=== PATIENT | male | born 1980 | race Caucasian/White ===

== ENCOUNTER 2019-01-30 20:21 | Emergency (ER) | payer SELFPAY ==
[~2019-01-30] VITALS: Ht 185.4 cm; Wt 99.8 kg
[2019-01-30 20:33] VITALS: BP 180/107
--- NOTE | 2019-01-30 20:37 | NUR ---
TO LOBBY A/W BED, AMBULATORY, ERMKulwant NOTED
--- NOTE | 2019-01-30 22:10 | NUR ---
PT AMBULATED TO ER BED 03
--- NOTE | 2019-01-30 22:15 | NUR ---
39/M PRESENTS TO ED WITH FAMILY/FRIEND, C/O PRESSURE-LIKE PAIN AROUND MID UMBILICAL REGION, RADIATING DIFFUSELY AROUND ABD, REPORTS PAIN WORSENING X1 MONTH. UMBILICAL HERNIA NOTED, COMPRESSIBLE, WHICH PT STATED HAS HAD FOR "YEARS" BUT HAS INCREASED IN SIZE X1 MONTH. PT DENIES FEVER, N/V/D, CONSTIPATION OR DYSURIA. AOX4, GCS 15, RR EVEN AND UNLABORED. BS ACTIVE X4, ABD SOFT ROUND MILDLY TENDER DIFFUSELY. DENIES MED HX OR RX. OTC ALKASELTZER AND TUMS WITHOUT RELIEF.
--- NOTE | 2019-01-30 23:33 | NUR ---
BP 185/120, HR 77. PT ASYMPTOMATIC, DENIES CP, SOB, DIZZINESS, N/V. ER MD MADE AWARE.
[2019-01-30] MEDS ORDERED: KETOROLAC 60 MG/2 ML VIAL IM ONE (23:35)
--- NOTE | 2019-01-31 00:02 | NUR ---
ER MD MADE AWARE OF VS, OK FOR DISCHARGE
[2019-01-31 00:03] VITALS: BP 185/120
--- NOTE | 2019-01-31 00:03 | NUR ---
Patient discharged with v/s stable. Written and verbal after care instructions given and explained. Patient alert, oriented and verbalized understanding of instructions. Ambulatory with steady gait. All questions addressed prior to discharge. ID band removed. Patient advised to follow up with PMD. Rx of Motrin 800mg given and abdominal binder. Patient educated on indication of medication including possible reaction and side effects. Opportunity to ask questions provided and answered.
== END 2019-01-31 00:03 | disposition home or self-care (01) ==
LOC: MED 20:21
DX: K42.9 Umbilical hernia without obstruction or gangrene (principal)
CPT/HCPCS: 74176; 81002; 96372; 99284; J1885